=== PATIENT | female | born 1970 | race Caucasian/White ===

== ENCOUNTER → 2017-01-03 | Outpatient (CLI) | payer BC ==
--- NOTE | 2017-01-06 17:50 | Diagnostic Imaging Report ---
Bilateral screening mammogram. The current study was also evaluated with a Computer Aided Detection (CAD) system. INDICATION: Screening. No current complaints stated on the questionnaire. COMPARISON: 05/07/2014. FINDINGS: The breasts are composed of heterogeneously dense parenchyma which may decrease mammographic sensitivity. There is no mass, architectural distortion, or suspicious cluster of calcification. Allowing for technique and positional differences, no suspicious change is seen. IMPRESSION: Dense breasts with no definite change. ACR BI-RADS Category 2: Benign findings. Result letter will be mailed to the patient. Note: At least 10% of breast cancer is not imaged by mammography. Dictated by: Dictated on workstation # [id number]
== END ==
LOC: RAD 14:07
PROVIDERS: ATTEND Obstetrics & Gynecology
DX: Z12.31 Encounter for screening mammogram for malignant neoplasm of breast (principal)
CPT/HCPCS: 77067

== ENCOUNTER → 2017-02-23 | Outpatient (CLI) | payer BC ==
--- NOTE | 2017-02-23 09:02 | Diagnostic Imaging Report ---
PROCEDURE: US Thyroid. TECHNIQUE: Multiple real-time grayscale images were obtained of the thyroid in various projections. INDICATION: Thyromegaly. FINDINGS: The right thyroid lobe is 4.6 x 1.5 x 1.7 CM. The left lobe is 4.2 x 1.5 x 1.5 CM. The thyroid gland is homogeneous with no focal lesion seen. IMPRESSION: Unremarkable exam. Dictated by: Dictated on workstation # [id number]
--- NOTE | 2017-02-23 10:39 | Diagnostic Imaging Report ---
PROCEDURE: US Gallbladder. TECHNIQUE: Multiple real-time grayscale images were obtained over the right upper quadrant in various projections. INDICATION: Abdominal pain. FINDINGS: The pancreas is largely obscured. The liver is fairly homogeneous with increased echogenicity, may relate to hepatitis or fatty infiltration. Hepatopetal flow in the portal vein is seen. The gallbladder demonstrates no stones or wall thickening. No pericholecystic fluid. Sonographic Solis sign is negative. The CBD is 5 mm in caliber. The right kidney is 9.2 cm in length with no hydronephrosis or focal lesion. No fluid collection in the upper right abdomen. IMPRESSION: Slight increased echogenicity in the liver may correlate with fatty infiltration or hepatitis. Dictated by: Dictated on workstation # [id number]
== END ==
LOC: RAD 06:52
PROVIDERS: ATTEND Nurse Practitioner Family
DX: E01.0 Iodine-deficiency related diffuse (endemic) goiter (principal); R10.84 Generalized abdominal pain
CPT/HCPCS: 76536; 76705

== ENCOUNTER → 2018-06-06 | Outpatient (CLI) | payer BC ==
--- NOTE | 2018-06-06 16:22 | Diagnostic Imaging Report ---
PROCEDURE: US right lower extremity venous. TECHNIQUE: Multiple Real-time grayscale images were obtained over the right lower extremity in various projections. Additional duplex Doppler and color Doppler images were also obtained. INDICATION: Leg pain and swelling. COMPARISON: There are no prior studies available for comparison. FINDINGS: There is generally good blood flow and compressibility at all levels. There is no evidence for deep venous thrombosis. IMPRESSION: There is no evidence for a deep venous thrombosis. Dictated by: Dictated on workstation # [id number]
== END ==
LOC: RAD 15:06
PROVIDERS: ATTEND Family Medicine
DX: M79.89 Other specified soft tissue disorders (principal); J01.90 Acute sinusitis, unspecified; I10 Essential (primary) hypertension; J30.89 Other allergic rhinitis; R09.82 Postnasal drip

== ENCOUNTER → 2019-03-26 | Outpatient (CLI) | payer BC ==
[2019-03-26 10:50] LABS: BASOPHILS % (AUTO) 1 % (0-10); EOSINOPHILS # (AUTO) 0.1 10^3/uL (0.0-0.3); EOSINOPHILS % (AUTO) 2 % (0-10); HEMATOCRIT 40 % (35-52); HEMOGLOBIN 13.1 G/DL (11.5-16.0); LYMPHOCYTES # (AUTO) 1.3 X 10^3 (1.0-4.0); LYMPHOCYTES % (AUTO) 25 % (12-44); MEAN CORPUSCULAR HEMOGLOBIN 30 PG (25-34); MEAN CORPUSCULAR HGB CONC 33 G/DL (32-36); MEAN CORPUSCULAR VOLUME 91 FL (80-99); MEAN PLATELET VOLUME 9.2 FL (7.4-10.4); MONOCYTES # (AUTO) 0.4 X 10^3 (0.0-1.0); MONOCYTES % (AUTO) 9 % (0-12); NEUTROPHILS # (AUTO) 3.2 X 10^3 (1.8-7.8); NEUTROPHILS % (AUTO) 63 % (42-75); PLATELET COUNT 341 10^3/uL (130-400); RED CELL DISTRIBUTION WIDTH 13.4 % (10.0-14.5)
[2019-03-26 11:11] LABS: BUN/CREATININE RATIO 8; CARBON DIOXIDE 23 MMOL/L (21-32); CHLORIDE 107 MMOL/L (98-107); CREATININE SERUM 0.87 MG/DL (0.60-1.30); POTASSIUM 3.8 MMOL/L (3.6-5.0); SODIUM 136 MMOL/L (135-145)
[2019-03-26 11:12] LABS: ALANINE AMINOTRANSFERASE 18 U/L (0-55); ALKALINE PHOSPHATASE 61 U/L (40-136); AMYLASE 49 U/L (25-125); BILIRUBIN,TOTAL 0.3 MG/DL (0.1-1.0); CALCIUM 9.3 MG/DL (8.5-10.1); GFR ESTIMATED > 60; GLUCOSE 89 MG/DL (70-105); LIPASE 14 U/L (8-78)
--- NOTE | 2019-03-26 12:08 | Diagnostic Imaging Report ---
INDICATION: Right upper quadrant abdominal pain. TECHNIQUE: Multiple grayscale sonographic images were obtained of the right upper quadrant of the abdomen. CORRELATION STUDY: None FINDINGS: LIVER: There is diffuse increased echotexture within the visualized portions of the liver. Some relative fatty sparing suggest about the right lobe. Liver length 13 cm. GALLBLADDER: The gallbladder demonstrates no definitive shadowing gallstones. No abnormal gallbladder wall thickening or pericholecystic fluid. COMMON BILE DUCT: Not visualized. However, no suggestion for significant bile duct dilatation. PANCREAS: Largely obscured. RIGHT KIDNEY: Measures approximately 11.4 cm. Largely obscured. AORTA/IVC: Not well visualized. OTHER: None. IMPRESSION: 1. Examination is compromised by obscuration from overlying bowel gas. Definitive acute abnormality is not demonstrated. 2. Findings suggestive of hepatic steatosis with some relative sparing along the right lobe. Dictated by: Dictated on workstation # [id number]
== END ==
LOC: RAD 10:35
PROVIDERS: ATTEND Nurse Practitioner Family
DX: R10.11 Right upper quadrant pain (principal)
CPT/HCPCS: 36415; 76705; 80053; 82150; 83690; 85025

== ENCOUNTER → 2019-04-18 | Outpatient (CLI) | payer BC ==
[~2019-04-18] MED LIST: CATHETER FLUSH 10 ML SYR IV PRN
--- NOTE | 2019-04-18 18:39 | Diagnostic Imaging Report ---
INDICATION: Abdominal pain. TECHNIQUE: Patient was administered 5.1 mCi of technetium-99m Choletec intravenously, and imaging over the abdomen was performed. At 45 minutes, patient ingested 8 ounces of Ensure, and gallbladder ejection fraction was calculated. FINDINGS: There is homogeneous uptake of activity by the liver. Prompt excretion of activity into the common duct and gallbladder is seen. There is normal passage of activity into the small bowel. Gallbladder ejection fraction is abnormally low at 26%. Normal values are 33% or greater. IMPRESSION: 1. No evidence of cystic duct or common bile duct obstruction. 2. Abnormally low gallbladder ejection fraction of 26%. Dictated by: Dictated on workstation # [id number]
== END ==
LOC: CARD 11:56
PROVIDERS: ATTEND Nurse Practitioner Family
DX: R10.13 Epigastric pain (principal)
CPT/HCPCS: 78227

== ENCOUNTER 2019-06-06 05:32 | Outpatient (CLI) | payer BC ==
[~2019-06-06] VITALS: Ht 160 cm; Wt 95.4 kg
[2019-06-06] MEDS ORDERED: TRIA1CAP4 PO (10:11)
== END 2019-06-06 11:46 | disposition home or self-care (01) ==
LOC: PREOP 05:32
PROVIDERS: ATTEND Surgery
DX: Z01.818 Encounter for other preprocedural examination (principal)

== ENCOUNTER 2019-06-12 05:47 | Day surgery (SDC) | payer BC ==
[2019-06-12] VITALS (12 sets, daily range): BP systolic 115–134; BP diastolic 54–86
[~2019-06-12] VITALS: Ht 160 cm; Wt 99.3 kg
[~2019-06-12 05:47] MED LIST changes: -CATHETER FLUSH 10 ML SYR IV PRN; +TRIA1CAP4 PO
[2019-06-12] MEDS ORDERED: CLINDAMYCIN 600 MG/50 ML IVPB 50 ML IV ONE (06:15)
[2019-06-12] MEDS: LACTATED RINGERS 1,000 ML IV PRN ×2 (06:30→09:24)
[2019-06-12 06:38] LABS: HEMATOCRIT 37 % (35-52); HEMOGLOBIN 12.5 G/DL (11.5-16.0); LYMPHOCYTES % (AUTO) 36 % (12-44); MEAN CORPUSCULAR HEMOGLOBIN 31 PG (25-34); MEAN CORPUSCULAR HGB CONC 34 G/DL (32-36); MEAN CORPUSCULAR VOLUME 91 FL (80-99); MEAN PLATELET VOLUME 9.5 FL (7.4-10.4); NEUTROPHILS % (AUTO) 48 % (42-75); PLATELET COUNT 306 10^3/uL (130-400); RED CELL DISTRIBUTION WIDTH 13.4 % (10.0-14.5); WHITE BLOOD COUNT 4.8 10^3/uL (4.3-11.0)
[2019-06-12 06:39] LABS: BASOPHILS % (AUTO) 1 % (0-10); EOSINOPHILS # (AUTO) 0.2 10^3/uL (0.0-0.3); EOSINOPHILS % (AUTO) 3 % (0-10); LYMPHOCYTES # (AUTO) 1.7 X 10^3 (1.0-4.0); MONOCYTES # (AUTO) 0.6 X 10^3 (0.0-1.0); MONOCYTES % (AUTO) 12 % (0-12); NEUTROPHILS # (AUTO) 2.3 X 10^3 (1.8-7.8)
[2019-06-12] MEDS ORDERED: ONDANSETRON 4 MG/2 ML (SDV) Z0FRAN ONE ×2 (06:41→06:44)
[2019-06-12] MEDS ORDERED: SCOPOLAMINE 1.5 MG (TRANSDERM-SCOP) PATCH ONE (06:41)
[2019-06-12] MEDS ORDERED: FAMOTIDINE 20MG/2ML IV (PEPCID) ONE (06:41)
[2019-06-12] MEDS ORDERED: DEXAMETHASONE 10 MG/ML (DECADRON) 1 ML VIAL ONE (06:44)
[2019-06-12] MEDS ORDERED: proPOfol 200 MG/20 ML (DIPRIVAN) VIAL IV ONE (06:44)
[2019-06-12] MEDS ORDERED: MIDAZOLAM 2 MG/2 ML (VERSED) VIAL ONE (06:44)
[2019-06-12] MEDS ORDERED: ROCURONIUM 10 MG/ML 5 ML SYRINGE IV ONE (06:44)
[2019-06-12] MEDS ORDERED: fentaNYL INJECTION 100 MCG/2 ML AMP ONE (06:44)
[2019-06-12] MEDS ORDERED: LIDOCAINE PF 2% 5 ML (XYLOCAINE) VIAL ONE (06:44)
[2019-06-12] MEDS ORDERED: SEVOFLURANE (ULTANE) 15 ML INHAL SOLN ONE ×5 (06:44→09:06)
[2019-06-12] MEDS ORDERED: FAMOTIDINE 20MG/2ML IV (PEPCID) IV ONE (06:45)
[2019-06-12] MEDS ORDERED: CATHETER FLUSH 10 ML SYR IV PRN (06:45)
[2019-06-12] MEDS ORDERED: ONDANSETRON 4 MG/2 ML (SDV) Z0FRAN IV ONE (06:45)
[2019-06-12] MEDS ORDERED: SCOPOLAMINE 1.5 MG (TRANSDERM-SCOP) PATCH TOP ONE (06:45)
[2019-06-12] MEDS ORDERED: BUP/EPI 0.25% 1:200,000 (MARCAINE) 10 ML VIAL IJ ONE (07:01)
[2019-06-12] MEDS ORDERED: IOPAMIDOL 61% 30 ML (ISOVUE 300) VIAL IV ONE (07:01)
--- NOTE | 2019-06-12 07:56 | Progress Note-Pre Operative ---
Pre-Operative Progress Note H&P Reviewed The H&P was reviewed, patient examined and no changes noted. Date Seen by Provider: Jun 12, 2019 Time Seen by Provider: 07:55 Date H&P Reviewed: Jun 12, 2019 Time H&P Reviewed: 07:55 Pre-Operative Diagnosis: biliary dyskinesia CINDY DUBON DO Jun 12, 2019 07:56
[2019-06-12] MEDS ORDERED: GLYCOPYRROLATE 0.2 MG/ML (ROBINUL) 2 ML VIAL ONE (08:39)
[2019-06-12] MEDS ORDERED: NEOSTIGMINE 3 MG/3 ML VIAL ONE (08:39)
[2019-06-12] MEDS ORDERED: IOHEXOL 300 MG/ML 30 ML (OMNIPAQUE 300) VIAL IV PRN (08:40)
--- NOTE | 2019-06-12 08:57 | Progress Note-Post Operative ---
Post-Operative Progess Note Surgeon (s)/Planer Off Bearer (s) Surgeon CINDY DUBON DO Planer Off Bearer: Dr. Palacios Pre-Operative Diagnosis biliary dyskinesia Post-Operative Diagnosis same Procedure & Operative Findings Date of Procedure 06/12/19 Procedure Performed/Findings lap andrea c ioc Anesthesia Type gen Estimated Blood Loss Estimated blood loss (mL): min Specimens/Packing Specimens Removed gallbladder CINDY DUBON DO Jun 12, 2019 08:57
[2019-06-12] MEDS ORDERED: ACHD5005 PO (08:58)
[2019-06-12] MEDS ORDERED: DOCU-143 PO (08:58)
--- NOTE | 2019-06-12 08:59 | Discharge Inst-Simple/Standard ---
Discharge Inst-Standard Discharge Medications New, Converted or Re-Newed RX: RX on Chart Patient Instructions/Follow Up Plan of Care/Instructions/FU: 2 weeks Joanne Activity as Tolerated: Yes Discharge Diet: Regular Diet Other Inst to Patient Follow up Appt: Make appointment for 2 weeks. Instructions: No lifting greater than 10 pounds. No strenuous activity. May shower in 24 hours, no tub bath or soaking. Use incentive spirometer at home as directed. No Smoking Skin/Wound Care: You have special glue over incisions it will fall off on its own. Symptoms to Report: Appetite Changes, Extremity Discoloration, Numbness/Tingling, Swelling Increased, Bleeding Excessive, Eyesight Changes, Pain Increased, Urine Color Change, Constipation(Persistent), Fever over 101 degree F, Pain/Pressure in ches t, Urinating Difficulty, Cough Up/Vomit Blood, Heart Beat Irreg/Pounding, Pain/Pressure in jaw, Vaginal Bleeding Increase, Cramps in feet or legs, Lightheadedness, Pain/Pressure in shoulder, Diarrhea(Persistent), Memory Changes Suddenly, Questions/Concerns, Weight gain consecutive days, Dizziness/Fainting, Nausea/Vomiting, Shortness of Breath, Weight gain over 2 pounds. If eyes or skin turn yellow notify physician. If questions or concerns contact your physician Or seek help at emergency department. CINDY DUBON DO Jun 12, 2019 08:59
--- NOTE | 2019-06-12 09:34 | Diagnostic Imaging Report ---
EXAMINATION: Fluoroscopy INDICATION: Abdominal pain Fluoroscopic assistance was provided for Dr. Rubio during his laparoscopic cholecystectomy procedure. 0.7 seconds of fluoroscopy time was utilized. 49 spot films of the right upper quadrant were obtained. There are laparoscopic devices in place. The common bile duct has been opacified via a cystic duct catheter. There is a small area of diminished opacification of the distal common bile duct. This may be related to a flow phenomenon as opposed to a minute retained calculus. The common bile duct itself does not seem to be dilated and there is extension of the contrast into the small bowel. IMPRESSION: Fluoroscopic assistance was provided for Dr. Rubio. Dictated by: Dictated on workstation # [id number]
[2019-06-12] MEDS ORDERED: morphine INJ 10 MG/ML 1ML (SYR OR VIAL) IVP ONE (09:45)
[2019-06-12] MEDS ORDERED: ONDANSETRON 4 MG/2 ML (SDV) Z0FRAN IVP PRN (09:45)
[2019-06-12] MEDS ORDERED: MEPERIDINE (DEMEROL) INJ 50 MG/ML IVP ONE (09:45)
--- NOTE | 2019-06-12 12:00 | NUR ---
PATIENT WENT TO GET DRESSED AND EXPERIENCED NAUSEA, PATIENT GIVEN CRACKERS AND ICE. PATIENT IS NOW STARTING TO FELL BETTER AT 1230, WILL LET THIS RN KNOW WHEN THEY ARE READY TO GET DRESSED AND LEAVE
--- NOTE | 2019-06-12 12:06 | Anesthesia-General Post-Op ---
General Patient Condition Mental Status/LOC: Same as Preop Cardiovascular: Satisfactory Nausea/Vomiting: Present (+ minimal nausea in SDC, tolerable per patient) Respiratory: Satisfactory Pain: Controlled Complications: Absent Post Op Complications Complications None Follow Up Care/Instructions Patient Instructions None needed. Anesthesia/Patient Condition Patient Condition Patient is doing well, no complaints, stable vital signs, no apparent adverse anesthesia problems. ALLAN AGUILAR DO Jun 12, 2019 12:06
--- NOTE | 2019-06-12 12:50 | OPERATIVE REPORT ---
DATE OF SERVICE: 06/12/2019 PREOPERATIVE DIAGNOSIS: Biliary dyskinesia. POSTOPERATIVE DIAGNOSIS: Biliary dyskinesia. PROCEDURE: Laparoscopic cholecystectomy with intraoperative cholangiogram. SURGEON: Cindy Rubio DO PURCHASE ANALYST: Dr. Palacios, assisted in retraction, dissection and closure. ANESTHESIA: General. ESTIMATED BLOOD LOSS: Minimal. COMPLICATIONS: None. INDICATIONS: The patient is a 48-year-old female with right upper quadrant abdominal pain and ejection fraction found to be 26%. She understands risks and benefits of procedure and wished to proceed with procedure. Consent was signed in the chart. DESCRIPTION OF PROCEDURE: The patient was taken to the operating suite. She was prepped and draped in sterile fashion. Timeout was performed. Local anesthetic was infiltrated just above the umbilicus. Incision was made 12 mm just above the umbilicus. Cautery was used to dissect down the fascia, which was then scored, grasped, elevated and the abdomen was then entered. A balloon trocar was inserted and pneumoperitoneum was achieved. Under direct visualization of the laparoscope, a 5 mm trocar was placed in subxiphoid region and two 5 mm trocars were placed in the right upper quadrant. The gallbladder was grasped and elevated. The cystic duct and cystic artery were then dissected out. The cystic duct had slight corkscrew appearance. Clips were placed on the proximal and distal portion of the cystic artery and the distal portion of the cystic duct. The cystic duct was then partially transected. Arrow catheter was then inserted and cholangiogram was performed. There were no filling defects. Contrast made its way into the duodenum without difficulty. The catheter was removed. Clips were placed on the proximal portion of the cystic duct and the cystic duct and artery were then completely transected. Hook cautery used to dissect the gallbladder from the gallbladder fossa achieving hemostasis. Once removed, it was placed in an Endobag and removed through the 12 mm trocar site. The abdomen was then irrigated and suctioned. The abdomen was inspected. Some adhesions down towards the pelvis were noted. No other pathology noted. The 12 mm trocar was then removed. The fascial defect was closed with a Christopher-Hakeem and 0 Vicryl. The abdomen was then desufflated, the trocars were removed. Skin was then closed using 4-0 Monocryl in subcuticular fashion. The abdomen was then washed and dried and Skin Affix was placed over the incisions. The patient tolerated procedure well without any complications. She was taken to recovery room in stable condition. Job ID: [id number] DocumentID: [id number] Dictated Date: 06/12/2019 09:20:49 Car Inspector Date: 06/12/2019 12:50:27 Dictated By: CINDY RUBIO DO
== END 2019-06-12 13:10 | disposition home or self-care (01) ==
LOC: SDC 05:47
PROVIDERS: ATTEND Surgery
DX: K81.1 Chronic cholecystitis (principal); K82.8 Other specified diseases of gallbladder; I10 Essential (primary) hypertension; E66.9 Obesity, unspecified; Z68.38 Body mass index [BMI] 38.0-38.9, adult; Z88.0 Allergy status to penicillin; Z88.1 Allergy status to other antibiotic agents; Z79.899 Other long term (current) drug therapy; Z87.891 Personal history of nicotine dependence; Z80.9 Family history of malignant neoplasm, unspecified; Z82.49 Family history of ischemic heart disease and other diseases of the circulatory system
CPT/HCPCS: 36415; 84703; 85025; 87081; 88304

== ENCOUNTER → 2019-11-11 | Outpatient (CLI) | payer BC ==
[~2019-11-11] MED LIST changes: +ACHD5005 PO; +DOCU-143 PO
--- NOTE | 2019-11-11 13:56 | Diagnostic Imaging Report ---
EXAMINATION: Digital mammogram bilateral screening. The current study was also evaluated with a Computer Aided Detection (CAD) system. 3-D tomosynthesis was also performed and reviewed. INDICATION: Screening. This study was compared to the prior exams of 01/03/2017 and 05/07/2014. At this time, there are no current complaints. FINDINGS: The fibroglandular tissue in both breasts is heterogeneously dense. This does limit the sensitivity of this exam. In the 11 o'clock position of the right breast approximately 11 cm from the nipple, there is a small group of microcalcifications. These microcalcifications were not clearly evident on the prior exam. I would recommend that a compression/magnification view of this area be obtained in the CC and ML projections so that they can be better characterized. The overall appearance of the breasts is otherwise stable. There is no primary or secondary sign of malignancy noted. IMPRESSION: Additional mammographic views of the right breast would be recommended for further study. ACR BI-RADS Category 0: Incomplete. (Needs additional imaging evaluation). Result letter will be mailed to the patient. Note: At least 10% of breast cancer is not imaged by mammography. Dictated by: Dictated on workstation # [id number]
== END ==
LOC: RAD 10:56
PROVIDERS: ATTEND Obstetrics & Gynecology
DX: Z12.31 Encounter for screening mammogram for malignant neoplasm of breast (principal)
CPT/HCPCS: 77067

== ENCOUNTER → 2019-11-21 | Outpatient (CLI) | payer BC ==
--- NOTE | 2019-11-21 15:03 | Diagnostic Imaging Report ---
INDICATION: Right breast calcifications. Patient presents for additional views. COMPARISON: Correlation is made with recent screening study from 11/11/2019. EXAMINATION: Unilateral right 2D and 3D diagnostic mammography was performed including magnification CC and ML views as well as conventional 90 degree lateral view. FINDINGS: There is a cluster of microcalcifications in the upper and slightly outer aspect of the right breast at mid depth. These appear new since prior examination from 2017. No soft tissue mass is identified. IMPRESSION: New subtle cluster microcalcifications in the upper outer aspect of the right breast mid depth. Tissue sampling is recommended. These would be amenable to stereotactic biopsy. ACR BI-RADS Category 4: Suspicious abnormality. Result letter will be mailed to the patient. Note: At least 10% of breast cancer is not imaged by mammography. Dictated by: Dictated on workstation # [id number]
== END ==
LOC: RAD 13:55
PROVIDERS: ATTEND Obstetrics & Gynecology
DX: R92.0 Mammographic microcalcification found on diagnostic imaging of breast (principal); R92.8 Other abnormal and inconclusive findings on diagnostic imaging of breast

== ENCOUNTER → 2023-01-09 | Outpatient (CLI) | payer BC ==
[~2023-01-09] MED LIST changes: -TRIA1CAP4 PO; +TRIA1CAP84 PO
--- NOTE | 2023-01-09 13:34 | Diagnostic Imaging Report ---
PROCEDURE: Pelvic comp/transvaginal sonogram. TECHNIQUE: Complete transabdominal and transvaginal pelvic ultrasound was performed. In addition, limited pelvic Doppler was performed. INDICATION: Abnormal uterine bleeding. Uterus is anteverted measuring 7.5 x 2.8 x 3.1 cm. Endometrium is 3 mm in thickness. The right uterine fundal region does show an area of heterogeneity which is mixed solid and cystic measuring 1.8 x 0.9 x 1.5 cm. There is internal vascularity. No other myometrial masses are seen. Right ovary measures 3.6 x 1.5 x 1.7 cm and the left ovary measures 3.5 x 1.5 x 2.5 cm. There is blood flow to both ovaries. No free fluid is seen. IMPRESSION: There is a complex mass within the right uterine fundus, perhaps a fibroid. No other abnormalities are seen. Dictated by: Dictated on workstation # [id number]
== END ==
LOC: RAD 11:37
PROVIDERS: ATTEND Obstetrics & Gynecology
DX: N93.9 Abnormal uterine and vaginal bleeding, unspecified (principal)
CPT/HCPCS: 76830; 76856

== ENCOUNTER 2023-01-13 05:35 | Outpatient (CLI) | payer BC ==
[~2023-01-13] VITALS: Ht 157.5 cm; Wt 94.5 kg
[2023-01-13] MEDS ORDERED: BUPR300T43 PO (12:15)
[2023-01-13] MEDS ORDERED: LISI1TAB48 PO (12:15)
[2023-01-13] MEDS ORDERED: ATOR10TA66 PO (12:15)
[2023-01-13] MEDS ORDERED: TIRZ10PE SQ (12:27)
== END 2023-01-13 12:37 | disposition home or self-care (01) ==
LOC: PREOP 05:35
PROVIDERS: ATTEND Obstetrics & Gynecology
DX: Z01.818 Encounter for other preprocedural examination (principal)

== ENCOUNTER 2023-01-17 08:14 | Day surgery (SDC) | payer BC ==
[2023-01-17] VITALS (9 sets, daily range): BP systolic 102–119; BP diastolic 53–78
[~2023-01-17] VITALS: Ht 157.5 cm; Wt 94.5 kg
[~2023-01-17 08:14] MED LIST changes: +ATOR10TA66 PO; +BUPR300T43 PO; +LISI1TAB48 PO; +TIRZ10PE SQ
[2023-01-17 09:43] LABS: BASOPHILS # (AUTO) 0.1 10^3/uL (0.0-0.1); BASOPHILS % (AUTO) 1 % (0-10); EOSINOPHILS # (AUTO) 0.2 10^3/uL (0.0-0.3); EOSINOPHILS % (AUTO) 3 % (0-10); HEMATOCRIT 37 % (35-52); HEMOGLOBIN 12.4 g/dL (11.5-16.0); LYMPHOCYTES # (AUTO) 1.3 10^3/uL (1.0-4.0); LYMPHOCYTES % (AUTO) 23 % (12-44); MEAN CORPUSCULAR HEMOGLOBIN 32 pg (25-34); MEAN CORPUSCULAR HGB CONC 34 g/dL (32-36); MEAN CORPUSCULAR VOLUME 93 fL (80-99); MEAN PLATELET VOLUME 9.6 fL (9.0-12.2); MONOCYTES # (AUTO) 0.6 10^3/uL (0.0-1.0); MONOCYTES % (AUTO) 10 % (0-12); NEUTROPHILS # (AUTO) 3.6 10^3/uL (1.8-7.8); NEUTROPHILS % (AUTO) 63 % (42-75); PLATELET COUNT 272 10^3/uL (130-400); WHITE BLOOD COUNT 5.6 10^3/uL (4.3-11.0)
[2023-01-17] MEDS ORDERED: BUPIVACAINE 0.25% 30 ML (SENSORCAINE) VIAL ONE (09:46)
[2023-01-17] MEDS ORDERED: BUPIVACAINE 0.25% 30 ML (SENSORCAINE) VIAL INJ ONE (10:00)
[2023-01-17] MEDS ORDERED: proPOfol 200 MG/20 ML (DIPRIVAN) VIAL IV ONE (10:04)
[2023-01-17] MEDS ORDERED: LIDOCAINE PF 2% 5 ML (XYLOCAINE) VIAL ONE (10:04)
[2023-01-17] MEDS ORDERED: ONDANSETRON 4 MG/2 ML (SDV) Z0FRAN ONE (10:04)
[2023-01-17] MEDS ORDERED: MIDAZOLAM 2 MG/2 ML (VERSED) VIAL ONE (10:05)
[2023-01-17] MEDS ORDERED: fentaNYL INJ 100 MCG/2 ML AMP ONE (10:05)
--- NOTE | 2023-01-17 10:17 | Progress Note-Pre Operative ---
Pre-Operative Progress Note Date of Available H&P: January 17, 2023 Date H&P Reviewed: January 17, 2023 Time H&P Reviewed: 10:00 History & Physical: H&P Reviewed, Patient Examed, No changes noted Pre-Operative Diagnosis: AUB, Fibroid uterus JANEE ESCOTO DO January 17, 2023 10:17
[2023-01-17] MEDS ORDERED: IBUP-1773 PO (10:18)
--- NOTE | 2023-01-17 10:18 | Discharge Inst-Women's Service ---
Discharge Inst-Women's Serv Depart Medication/Instructions New, Converted or Re-Newed RX: Transmitted to Pharmacy Problems Reviewed?: Yes Consults/Follow Up Additional Follow Up: Yes Activity Activity: Activity as Tolerated Driving Instructions: You May Drive (no driving today) NO SMOKING: NO SMOKING Nothing Inside Vagina: No Douching, No Sells, No Tampons Diet Discharge Diet: No Restrictions Symptoms to Report to : Bleeding Excessive, Pain Increased, Fever Over 101 Degrees F, Vaginal Bleeding Increase, Questions/Concerns For Any Problems or Questions: Contact Your Physician JANEE ESCOTO DO January 17, 2023 10:18
[2023-01-17] MEDS: LACTATED RINGERS 1,000 ML IV PRN ×2 (10:26→10:45)
[2023-01-17] MEDS ORDERED: D5 LR IV SOLUTION 1,000 ML IV SCH (10:30)
[2023-01-17] MEDS ORDERED: KETOROLAC 30 MG/ML VIAL IVP ONE (10:30)
[2023-01-17] MEDS ORDERED: ONDANSETRON 4 MG/2 ML (SDV) Z0FRAN IVP PRN ×2 (10:30→11:00)
[2023-01-17] MEDS ORDERED: SEVOFLURANE (ULTANE) 15 ML INHAL SOLN ONE (10:32)
--- NOTE | 2023-01-17 10:55 | Anesthesia-General Post-Op ---
General Patient Condition Mental Status/LOC: Same as Preop Cardiovascular: Satisfactory Nausea/Vomiting: Absent Respiratory: Satisfactory Pain: Controlled Complications: Absent Post Op Complications Complications None Follow Up Care/Instructions Patient Instructions None needed. Anesthesia/Patient Condition Patient Condition Patient is awake in PACU and doing well, no complaints, stable vital signs, no apparent adverse anesthesia problems. No complications reported per nursing. ALLAN AGUILAR DO January 17, 2023 10:55
[2023-01-17] MEDS ORDERED: morphine INJ 10 MG/ML 1ML (SYR OR VIAL) IVP ONE (11:00)
--- NOTE | 2023-01-17 20:21 | OPERATIVE REPORT ---
DATE OF SERVICE: 01/17/2023 PREOPERATIVE DIAGNOSES: 1. A 52-year-old female with abnormal uterine bleeding. 2. Fibroid uterus. POSTOPERATIVE DIAGNOSES: 1. A 52-year-old female with abnormal uterine bleeding. 2. Fibroid uterus. PROCEDURE: D and C. SURGEON: Janee Escoto DO ANESTHESIA: LMA, general. ESTIMATED BLOOD LOSS: Minimal. URINE OUTPUT: 75 mL drained at the start of the procedure. FLUIDS: 1000 mL lactated Ringer's solution. FINDINGS: Grossly normal-appearing external female genitalia. Moderate amount of endometrial curettings. SPECIMEN SENT: Endometrial curettings. INDICATIONS FOR PROCEDURE: This 52-year-old female. The patient sought care in my office for ongoing issues with heavy bleeding and fibroid uterus. The patient wished to have definitive measures performed; however, at this point is not ready to proceed with those due to the time of and restrictions postoperatively. She would like to have this done after the summer. She also not had any diagnostic endometrial sampling done either. So we discussed proceeding with Santos and C. Risks of procedure discussed with the patient in detail and after all of her questions were answered, she was agreeable to proceed. Consent was obtained. The patient was taken to the operating room. OPERATIVE DESCRIPTION IN DETAIL Once in the operating room, anesthesia was found to be adequate, was placed in dorsal lithotomy position, prepped and draped in normal sterile fashion. A timeout was performed. A weighted speculum inserted to the patient's vagina. Ring retractor was utilized. Cervix was grasped at 12 o'clock position using a single tooth tenaculum. I then performed a paracervical block at 3 and 9 o'clock positions on the cervix. Care was taken to aspirate for injecting 5 mL of 0.25% Marcaine injected into each site. I then gently sound the uterine cavity and that was found to be 8 cm and gently dilate the cervix using Hanks dilators to maximum dilatation approximately 1 cm, at which point I performed a gentle curettage using a medium size endometrial curette teat of all [place] of the uterus. A small to moderate amount of endometrial curettings were collected in the process of doing this, there was no active bleeding noted After this was performed, I then removed all the instruments from the patient's vagina. The patient tolerated the procedure well and was taken to recovery area in stable condition. Lap and sponge counts were correct. At the end of the procedure. Instrument counts correct as well. Job ID: [id number] DocumentID: [id number] Dictated Date: 01/17/2023 10:48:32 Food Inspector Date: 01/17/2023 20:19:00 Dictated By: JANEE ESCOTO DO
== END 2023-01-17 12:15 | disposition home or self-care (01) ==
LOC: SDC 08:14
PROVIDERS: ATTEND Obstetrics & Gynecology
DX: D25.9 Leiomyoma of uterus, unspecified (principal); N93.9 Abnormal uterine and vaginal bleeding, unspecified; E66.9 Obesity, unspecified; N85.8 Other specified noninflammatory disorders of uterus; F17.210 Nicotine dependence, cigarettes, uncomplicated; Z68.38 Body mass index [BMI] 38.0-38.9, adult
CPT/HCPCS: 36415; 84703; 85025; 86850; 86900; 86901; 87081